=== PATIENT | female | born 1990 | race Caucasian/White ===

== ENCOUNTER 2023-01-05 13:49 | Outpatient (CLI) | payer OTHER, SELFPAY | END 2023-01-05 13:50 | disposition home or self-care (01) | PROVIDERS: PCP Physician Assistant; Visit Provider Registered Nurse | DX: Z01.419 Encounter for gynecological examination (general) (routine) without abnormal findings (principal); R03.0 Elevated blood-pressure reading, without diagnosis of hypertension; E66.01 Morbid (severe) obesity due to excess calories; R19.7 Diarrhea, unspecified; Z13.6 Encounter for screening for cardiovascular disorders; Z13.1 Encounter for screening for diabetes mellitus; Z83.49 Family history of other endocrine, nutritional and metabolic diseases | CPT/HCPCS: 80061; 82947; 84443 ==

== ENCOUNTER 2024-03-22 12:18 | Outpatient (CLI) | payer OTHER, SELFPAY ==
--- NOTE | 2024-03-22 12:15 | CRLHL7_ITS ---
For Patients: As a result of the Century Cures Act, medical imaging exams and procedure reports are released immediately into your electronic medical record. You may view this report before your referring provider. If you have questions, please contact your health care provider. INDICATION: First trimester scan, establish dates. COMPARISON: None. TECHNIQUE: Real-time lopez-scale imaging of the pelvis was performed. FINDINGS: Sonographic imaging demonstrates a twin living diamniotic/dichorionic intrauterine gestation. Twin A: The embryo demonstrates a regular cardiac rate measuring 176 beats per minute. The embryo`s crown-rump length measurement of 2.0 cm corresponds to a gestational age of 8 weeks 4 days with a sonographic due date of 10/28/2024. There is a normal-appearing yolk sac. There are no gross abnormalities noted within the embryo at this early state of development. The gestational sac has a normal appearance. The amount of fluid within the sac appears appropriate for gestational age. Twin B: The embryo demonstrates a regular cardiac rate measuring 173 beats per minute. The embryo`s crown-rump length measurement of 2.2 cm corresponds to a gestational age of 8 weeks 6 days with a sonographic due date of 10/26/2024. There is a normal-appearing yolk sac. There are no gross abnormalities noted within the embryo at this early state of development. The gestational sac has a normal appearance. The amount of fluid within the sac appears appropriate for gestational age. The cervix is closed. The myometrium appears normal. Normal right ovary. Left ovary not visualized. There are no suspicious fluid collections noted in the cul-de-sac. Subchorionic hemorrhage is present measuring 2.7 x 1.9 x 2.8 cm. IMPRESSION: Twin A: Gestational age calculated at 8 weeks 4 days with a sonographic due date of 10/28/2024. Twin B: Gestational age calculated at 8 weeks 6 days with a sonographic due date of 10/26/2024. Subchorionic hemorrhage measures 2.7 x 1.9 x 2.8 cm. Dictated by Kei Lin MD @ 03/22/2024 1:25:40 PM (Electronically Signed)
== END 2024-03-22 12:19 | disposition home or self-care (01) ==
LOC: US 12:18
PROVIDERS: Visit Provider Registered Nurse
DX: Z34.91 Encounter for supervision of normal pregnancy, unspecified, first trimester (principal); Z3A.08 8 weeks gestation of pregnancy
CPT/HCPCS: 76817; 82565; 82570; 84156; 84450; 84460; 84520; 86592; 86703; 86704; 86706; 86762; 86787; 86803; 86850; 86900; 86901; 87086; 87340; 87491; 87591

== ENCOUNTER 2024-03-25 08:53 | Outpatient (CLI) | payer OTHER, SELFPAY | END 2024-03-25 08:54 | disposition home or self-care (01) | LOC: NFLDREF 03-27 11:30 | PROVIDERS: Visit Provider Registered Nurse | DX: R03.0 Elevated blood-pressure reading, without diagnosis of hypertension (principal) | CPT/HCPCS: 82570; 84156 ==

== ENCOUNTER 2025-04-11 12:22 | Emergency (ER) | payer OTHER, SELFPAY ==
[2025-04-11 12:26] VITALS: BP 131/85; PULSE 66; RESP 20; TEMP 36.4; O2SAT 96; BMI 41.6
--- NOTE | 2025-04-11 13:00 | ED.CHESTPAIN ---
HPI - Chest Pain General Chief Complaint: Chest Pain Stated Complaint: Chest pain Time Seen by Provider: 04/11/25 12:26 History of Present Illness HPI narrative: This 34-year-old female comes in with her mother and reports chest discomfort that began a couple hours prior to arrival. She states that she was sitting doing no particular activity when she began to have some chest discomfort in her mid sternal area. She did not have any nausea or vomiting. She states that she felt a little bit lightheaded and felt some tingling down her left arm. This triggered significant anxiety symptoms. She has been under extra stress lately as she delivered twins 6 months ago and has a 4-year-old at home. 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 She is taking a blood pressure medicine to treat preeclampsia related hypertension. She is otherwise in good health. She does not have any other cardiac risk factors. She reports good exercise tolerance. Currently she is not having any pain. When she was feeling the pain she states that she could make it worse with taking a deep breath. Related Data Home Medications ?Medication ?Instructions ?Recorded ?Confirmed lisinopril 10 mg tablet 10 mg PO DAILY 04/11/25 04/11/25 Allergies Allergy/AdvReac Type Severity Reaction Status Date / Time bee venom protein (honey bee) Allergy Severe Swelling Verified 03/22/24 10:29 of Lip/Tongue/Throat Sulfa (Sulfonamide Allergy Intermediate Hives Verified 03/22/24 10:29 Antibiotics) Review of Systems Status of ROS Reports: 10 or more systems reviewed and unremarkable except as noted in History and below Narrative Constitutional: No fevers, no weight gain or loss. Eyes: No discharge. No vision changes. HENT: No congestion, no sore throat, no ear pain. Cardiovascular: No palpitations. Chest discomfort as described above. Respiratory: No shortness of breath, no wheezes, no cough. Gastrointestinal: No abdominal pain, no vomiting, no diarrhea. Genitourinary: No dysuria, no hematuria. Musculoskeletal: Normal range of motion. Skin: No rashes, no pruritis. Neurological: No dizziness, weakness, sensory change, speech change. Endo/Heme/Allergies: No bruising or bleeding. No polydipsia. Pysch: no suicidality, no anxiety, no insomnia. All other systems reviewed and are negative. [facility] Medical History History of gestational hypertension (2020) ?Z87.59 - Personal history of other complications of , childbirth and the puerperium (ICD-10) Surgical History History of section (01/30/21) ?Z98.891 - History of uterine scar from previous surgery (ICD-10) Family History Mother High blood pressure Thyroid disease Grandmother Osteoporosis Other Diverticulitis Social History What is your current living situation?: I presently have a place to live Problems where you live: no known problems In the past 12 months, utilities in danger of being shut off: no In past 12 months, lack of transportation kept you from medical appts, meetings, work, or getting things needed for daily living: no In the past 12 mos, have been you worried that your food would run out before you had money to buy more?: never true In the past 12 mos, the food you bought just didn't last and you didn't have money to buy more?: never true Smoking Status: Never smoker How often do you have a drink containing alcohol: never AUDIT-C Alcohol total score: 0 Non-prescribed substance use: denies use How often does anyone, including family, friends and others, physically hurt you: never How often does anyone, including family, friends and others, insult or talk down to you: never How often does anyone, including family, friends and others, threaten you with harm: never How often does anyone, including family, friends and others, scream or curse at you: never Exam Narrative Exam Narrative: Constitutional: Well-developed, well-nourished, no acute distress. HEENT: Normocephalic, atraumatic. Neck: Normal range of motion. Nontender. Supple. Heart: Regular. No murmurs. Normal rate. Intact distal pulses. Lungs: Clear to auscultation. No chest discomfort. No wheezes, rhonchi, or rales. Abdomen: Normal bowel sounds. Nontender. No rebound tenderness. Genitalia: Deferred. Back: No midline tenderness. Normal range of motion. Extremities: Normal range of motion. No injury. Skin: Intact. No rash. Warm. No erythema or pallor. Neurologic: No altered sensation. No weakness. Alert and oriented. Psychiatric: No suicidality. No anxiety or depression. No insomnia. Nursing notes and vitals signs are reviewed. Const Vital Signs, click to edit/add: Vital Signs - 24 hr 04/11/25 12:26 Temperature 97.5 F L Pulse Rate [Pulse Oximeter] 66 Respiratory Rate 20 Blood Pressure [Right Upper Arm] 131/85 Pulse Oximetry 96 Oxygen Delivery Method Room Air Course Vital Signs Vital signs: Initial Vital Signs Temperature 97.5 F L 04/11/25 12:26 Temperature Source Temporal Artery Scan 04/11/25 12:26 Pulse Rate 66 04/11/25 12:26 Respiratory Rate 20 04/11/25 12:26 Blood Pressure 131/85 04/11/25 12:26 Blood Pressure Mean 100 04/11/25 12:26 Blood Pressure Position Sitting 04/11/25 12:26 Pulse Oximetry 96 04/11/25 12:26 Oxygen Delivery Method Room Air 04/11/25 12:26 Vital Signs Temperature 97.5 F L 04/11/25 12:26 Pulse Rate 66 04/11/25 12:26 Respiratory Rate 20 04/11/25 12:26 Blood Pressure 131/85 04/11/25 12:26 Pulse Oximetry 96 04/11/25 12:26 Oxygen Delivery Method Room Air 04/11/25 12:26 Temperature 97.5 F L 04/11/25 12:26 Pulse Rate 66 04/11/25 12:26 Respiratory Rate 20 04/11/25 12:26 Blood Pressure 131/85 04/11/25 12:26 Pulse Oximetry 96 04/11/25 12:26 Oxygen Delivery Method Room Air 04/11/25 12:26 MDM - Chest Pain MDM Narrative Medical decision making narrative: This patient comes in reporting chest discomfort as described above. Currently she is no longer having any discomfort. There was some reproducibility of her symptoms suggesting chest wall pain. EKG and labs returned with normal results. This was reassuring to the patient who is able to be discharged home to resume current plans. Lab Data Labs: Lab Results 10/17/25 Range/Units 13:07 WBC 7.39 (4.50-11.00) K/uL RBC 4.86 (4.00-5.20) m/uL Hgb 12.6 (12.0-16.0) gm/dL Hct 39.5 (33.0-51.0) % MCV 81 (80-100) fL MCH 26 (26-34) pg MCHC 32 (32-36) gm/dL RDW Coeff of Inga 16.1 H (11.5-15.5) % Plt Count 213 (140-440) K/uL Neut % (Auto) 72.1 H (42.0-72.0) % Lymph % (Auto) 19.6 L (20-44) % Tyrrell % (Auto) 5.5 (0.0-11.0) % Eos % (Auto) 2.3 (0.0-7.0) % Baso % (Auto) 0.5 (0.0-3.0) % Neut # (Auto) 5.30 (1.7-7.0) K/uL Lymph # (Auto) 1.40 (0.90-2.90) K/uL Tyrrell # (Auto) 0.40 (0.00-0.90) K/UL Eos # (Auto) 0.17 (0.00-0.50) K/uL Baso # (Auto) 0.04 (0.00-0.30) K/uL Abs Immat Gran (auto) 0.00 (0.00-0.30) K/uL Imm/Tot Granulo (auto) 0.0 % Sodium 134 L (135-149) mmol/L Potassium 3.8 (3.6-5.1) mmol/L Chloride 103 (96-114) mmol/L Carbon Dioxide 20 (20-32) mmol/L Anion Gap 11 (7-15) mEq/L BUN 13 (5-24) mg/dL Creatinine 0.6 (0.5-1.5) mg/dL Estimated Creat Clear 116.64 Estimated GFR 119 ml/min Glucose 97 (60-115) mg/dL Calcium 9.0 (8.4-10.6) mg/dL POC Troponin I 0.01 (0.01-0.04) ng/ml ECG Data Attestation: I personally reviewed and interpreted this ECG as follows: Interpretation: Normal sinus rhythm. Rate is 63 beats per minute. There are no ST or T-wave abnormalities. Discharge Plan Discharge Clinical Impression: Acute chest wall pain Patient Disposition: Home, Self-Care Condition: Stable Additional Instructions: Activity as tolerated. Use [id number] medicines as needed and directed. Follow up with MD return if worsening. Prescriptions: No Action lisinopril 10 mg tablet 10 mg PO DAILY Follow Up/Referrals: Provider,Not a Local [Primary Care Provider, Family Practice] Stand Alone Forms: [employer] Info Instructions
[2025-04-11 13:13] LABS: Hematocrit* 39.5 % (33.0-51.0); Hemoglobin* 12.6 gm/dL (12.0-16.0); Immature Granulocytes Abs Auto 0.00 K/uL (0.00-0.30); Immature Granulocytes Pct Auto 0.0 %; Mean Corpuscular HGB Conc 32 gm/dL (32-36); Mean Corpuscular Hemoglobin 26 pg (26-34); Mean Corpuscular Volume 81 fL (80-100); RDW Coefficient of Variation % 16.1 % (11.5-15.5); Red Blood Count* 4.86 m/uL (4.00-5.20); White Blood Count* 7.39 K/uL (4.50-11.00)
[2025-04-11 13:17] LABS: Lymphocytes Absolute Auto 1.40 K/uL (0.90-2.90)
[2025-04-11 13:18] LABS: Slide Review Reflex No
[2025-04-11 13:22] LABS: Troponin, Point-of-Care* 0.01 ng/ml (0.01-0.04)
[2025-04-11 13:26] LABS: Chloride* 103 mmol/L (96-114); Potassium* 3.8 mmol/L (3.6-5.1); Sodium* 134 mmol/L (135-149)
[2025-04-11 13:29] LABS: Anion Gap 11 mEq/L (7-15); Blood Urea Nitrogen* 13 mg/dL (5-24); Carbon Dioxide* 20 mmol/L (20-32); Creatinine* 0.6 mg/dL (0.5-1.5); Est. Creatinine Clearance* 116.64; Estimated Glomerular Filt Rate 119 ml/min
[2025-04-11 13:30] LABS: Calcium* 9.0 mg/dL (8.4-10.6); Glucose* 97 mg/dL (60-115)
== END 2025-04-11 13:57 | disposition home or self-care (01) ==
PROVIDERS: Emergency Provider Emergency Medicine Emergency Medical Services
DX: R07.89 Other chest pain (principal)
CPT/HCPCS: 36415; 80048; 84484; 85025; 93005; 99284